=== PATIENT | male | born 2000 | race Caucasian/White ===

== ENCOUNTER → 2020-03-10 | Emergency (ER) | payer MEDICAID ==
[~2020-03-10] VITALS: Ht 175.3 cm; Wt 90.7 kg
[2020-03-10 16:24] VITALS: BP 128/77
== END | disposition left against medical advice (07) ==
LOC: ER 16:12
DX: S61.212A Laceration without foreign body of right middle finger without damage to nail, initial encounter (principal); Z53.21 Procedure and treatment not carried out due to patient leaving prior to being seen by health care provider; W26.9XXA Contact with unspecified sharp object(s), initial encounter; Y93.89 Activity, other specified; Y99.8 Other external cause status; Y92.89 Other specified places as the place of occurrence of the external cause